=== PATIENT | male | born 1985 | race Caucasian/White ===

== ENCOUNTER 2022-02-07 23:42 | Emergency (ER) | payer BC, SELFPAY ==
[2022-02-07 23:43] VITALS: BP 162/75; PULSE 96; RESP 18; TEMP 36.3; O2SAT 98; BMI 36.1
--- NOTE | 2022-02-08 00:16 | EX.ED.DYSGE1 ---
HPI History of Present Illness Chief Complaint: General Illness Informant: patient Narrative Narrative: Patient would like another COVID test. He started with nasal congestion he is also getting nasal drainage. This is causing cough. He is not wheezing. He is not really short of breath. He is a bit tired. His energy level is down. No nausea vomiting diarrhea symptoms. No headache. Only slight muscle aches. He has had subjective fevers but none measured. This all really started over the past day or so. He had a home COVID test that was positive today. His concern is that he has family members who have had false positives with the same test so he would like an official test. Nothing is really making his symptoms better or worse but nothing is yet been tried. Patient has no chronic medical conditions and takes no medications. He did have [employer] vaccine back in May. He also had COVID just about a week after he got the vaccine. [facility] Home Medications NK 02/07/22 [History Last Taken Unknown] Allergy/AdvReac Type Severity Reaction Status Date / Time No Known Allergies Allergy Verified 02/07/22 23:50 Social History Smoking Status: Never smoker ROS ROS ED Constitutional Constitutional ED: Reports subjective Eyes Eyes: Denies blurry vision ENT ENT ED: Reports rhinorrhea; Denies ear pain or sore throat Cardiovascular Cardiovascular: Denies chest pain or palpitations Respiratory/Chest Respiratory/Chest: Reports cough; Denies dyspnea or sputum Gastrointestinal Gastrointestinal: Denies abdominal pain, diarrhea, nausea or vomiting Genitourinary Genitourinary ED: Denies dysuria Musculoskeletal Musculoskeletal: Reports myalgias Integumentary Denies rash Neurologic Neurologic: Denies headache(s) Hematologic/Lymphatic Hematologic/Lymphatic: Denies anemia Allergic/Immunologic Allergic/Immunologic ED: Denies urticaria EXAM Physical Exam Const Vital Signs: 02/07/22 23:43 02/07/22 23:49 02/08/22 00:32 Temperature 97.4 F L Temperature Source Temporal Pulse Rate 96 87 Respiratory Rate 18 18 Respiratory Effort Normal Non-Labored Respiratory Pattern Normal Blood Pressure 162/75 H 162/87 H Blood Pressure Mean 104 Pulse Ox 98 96 Oxygen Delivery Method Room Air Positive well nourished and well developed General Appearance ED: well developed and NAD; Negative for cyanotic, diaphoretic or pallor HEENT HEENT Narrative: No facial rash or tenderness. Eyes EOMs intact bilaterally Neck no lymphadenopathy and no JVD Chest Wall inspection of chest normal Resp normal respiratory effort Resp Narrative: Patient is lying in the bed. Breathing is easy and unlabored. I hear no wheezes rales or rhonchi. No pain with a deep breath. Cardio regular rate and regular rhythm Rate: Negative for tachycardic GI normal to inspection, nondistended, normoactive bowel sounds and non-tender Back/Spine no CVA tenderness Extremity normal to inspection Neuro Sensorium / Orientation: alert Psych mental status grossly normal Skin no rashes or lesions noted General Skin Exam: Negative for jaundice or pallor MDM MDM MDM Narrative Medical decision making narrative: Patient has symptoms of COVID. He has a positive test. I explained that this means he likely does have COVID. His pretest probability for second test is extremely high. For this reason there is not an indication to do a rapid test again. A negative test would likely be a false negative. Therefore, I told the patient we can send a PCR test although I will get that back tonight. We talked about Paxil bid but the patient really has no high risk features that would require this. PERC rule is negative. He has no hemoptysis or pleuritic pain. I do not think he needs to be worked up for pulmonary embolus at this time. We discussed the duration of illness, quarantining at home until asymptomatic and reasons to follow-up Discharge Plan Triage Chief Complaint: General Illness ED Provider: Vincent Pozo Dx/Rx/DC Orders Clinical Impression: COVID Instructions: Coronavirus Disease 2019 (COVID-19): Caring for Yourself or Others Prescriptions: No Action NK Primary Care Provider: Care Physician,No Primary Referrals: Alida Choi MD [Med Staff - Director Of Academic Support] - 1 Week if not improving Disposition Disposition: Home, Self Care Discharge Date/Time: 02/08/22 00:32
[2022-02-08 00:32] VITALS: BP 162/87; PULSE 87; RESP 18; O2SAT 96
== END 2022-02-08 00:32 | disposition home or self-care (01) ==
LOC: ED 02-08 00:23
PROVIDERS: Emergency Provider Emergency Medicine; Visit Provider Emergency Medicine
DX: U07.1 COVID-19 (principal)
CPT/HCPCS: 87635; 99283; U0003; U0005

== ENCOUNTER 2023-11-26 15:24 | Inpatient (IN) | payer BC, SELFPAY ==
[2023-11-26] VITALS (7 sets, daily range): BP systolic 119–156; BP diastolic 67–87; PULSE 72–89; RESP 16–18; TEMP 36.3–37.1; O2SAT 97–100; BMI 35.9; BMI 36.1
--- NOTE | 2023-11-26 15:40 | EKG12_ITS ---
Test Reason : Blood Pressure : / mmHG Vent. Rate : 073 BPM Atrial Rate : 073 BPM P-R Int : 162 ms QRS Dur : 098 ms QT Int : 386 ms P-R-T Axes : 047 049 021 degrees QTc Int : 425 ms Normal sinus rhythm Normal ECG Confirmed by Yordy Saldivar ([id number]), school photograph editor TERELL BALLESTEROS ([id number]) on 11/27/2023 9:24:58 AM Referred By: Confirmed By:Yordy Saldivar
--- NOTE | 2023-11-26 15:43 | EDS_ITS ---
<Statement entered by Madiha Mustafa MD - 11/26/23 20:08> I have personally performed a face to face assessment of the patient and have reviewed the EDGAR Note. Patient presents secondary to right leg infection. Patient suffered a wound to the right lower leg on November 20 at work. He dropped a part caused a skin abrasion. He was seen at an outside urgent care 2 days later and started on Keflex. He does admit that his skin was irritated from the bandages that he had been using. However, the patient now notes large increasing area of redness with red streak up his thigh. He has not noted a fever but does report chills. Patient sitting upright in bed no acute distress. Nontoxic-appearing. Head and neck examination unremarkable. Heart is regular rate and rhythm. Lung sounds are clear. Abdomen is soft and nontender. Right lower extremity examination reveals erythema with skin thickening over the medial anterior lower portion of the lower leg. He does have a slight lymphangitic streak up the medial thigh. Good range of motion at the joints. CBC and chemistry studies are unremarkable. Lactic acid is normal. Patient started on Unasyn and vancomycin for failed outpatient treatment of cellulitis. Patient discussed with hospitalist for admission. HPI History of Present Illness Chief Complaint: Cellulitis Narrative Narrative: Patient is a 38-year-old male with no significant ankle history presents to the emergency department for ongoing concern for infection of the right lower extremity. Patient states greater than 2 weeks ago, he cut himself from a piece of metal at work. Patient was seen at the urgent care on and was place d on Keflex 4 times a day for 10 days. Patient states that the redness continued, it is now seeping, his leg is more swollen, there is more streaking going up his leg and he is here for evaluation. He did go to urgent care again for reevaluation however they referred him here for outpatient failure and for possible admission to the hospital. Patient is complaining of fever and chills as well as intermittent headaches. Patient also states he has some hives to his arms, he is concerned might be from the Keflex. However he has never had any history of allergies PFSH PFSH Home Medications ?Medication ?Instructions ?Recorded ?Last Taken ?Type NK 02/07/22 Unknown History Allergy/AdvReac Type Severity Reaction Status Date / Time cephalexin (From Keflex) Allergy Mild Rash Verified 11/26/23 15:27 Social History (System 02/10/22 @ 06:19 by Kate Powers) Smoking Status: Never smoker ROS ROS ED ROS Narrative Constitutional: Negative for fever, chills, weight loss, weakness Eyes: Negative for vision loss, vision change, double vision ENT: Negative for any sore throat, ear pain, congestion Cardiovascular: Negative for any chest pain, tightness, palpitations Respiratory: Negative for any cough, sputum production, hemoptysis, dyspnea, dyspnea on exertion, orthopnea Gastrointestinal: Negative for any abdominal pain, nausea, vomiting, diarrhea, constipation, blood in stool, blood in vomit : Negative for any urinary frequency, dysuria, retention, blood in urine Muscle skeletal: Negative for any neck pain, back pain. Patient has pain to the right lower extremity Neurological: Negative for any headache, syncope, dizziness Skin: Negative for any rashes, itching, abrasions, lacerations. Patient has cellulitis with drainage to the right lower extremity. Psychiatric: Negative for any depression, anxiety, stress, suicidal ideation, homicidal ideation Hematologic: Negative for any excessive bruising, easy bleeding EXAM Physical Exam Narrative Exam Narrative: Vital signs reviewed. HEET: Head normocephalic atraumatic, TMs clear bilaterally. Posterior pharynx is clear, moist mucous membranes. Nares clear bilaterally. Neck: Supple with no lymphadenopathy or tenderness. No signs of meningismus. Cardiac: Regular rate and rhythm no murmurs gallops or rubs, equal peripheral pulses bilaterally. Respiratory: Lungs clear to auscultation bilaterally. No chest tenderness. Abdomen: Soft, nontender, nondistended. No abdominal bruit or pulsatile masses. No hepatosplenomegaly Extremities: No peripheral edema, no signs of gross trauma or deformity. Active full range of motion of all extremities. Patient's right lower extremity from the ankle to the mid tibia. There is significant erythema, there is a streak to the medial aspect of the leg that goes past the knee into the mid thigh. There is serosanguineous drainage from the wound. This does show some significant increase in cellulitis. Neuro: Cranial nerves II through XII intact, no focal neurological deficits. Skin: Clean dry and intact with no rash, purpura, petechiae, vesicles or pustules. Backs/flank: No CVA tenderness, no midline spinal tenderness, no deformity. Psych: Normal mood and affect. No SI, HI or acute psychosis. Const Vital Signs: 11/26/23 15:24 11/26/23 15:26 11/26/23 16:26 Temperature 97.4 F L 97.4 F L 97.6 F L Temperature Source Temporal Temporal Temporal Pulse Rate 74 74 76 Respiratory Rate 16 16 18 Blood Pressure 156/87 H 156/87 H 119/82 H Blood Pressure Mean 110 110 94 Pulse Ox 100 100 99 Oxygen Delivery Method Room Air Room Air Room Air [facility] Lab Data Labs: Laboratory Results - last 24 hr 11/26/23 15:56 WBC 10.6 RBC 5.18 Hgb 14.7 Hct 44.1 MCV 85.1 MCH 28.4 MCHC 33.3 RDW Std Deviation 37.8 RDW Coeff of Nessa 12.2 Plt Count 303 MPV 10.1 Immature Gran % (Auto) 0.400 Neut % (Auto) 70.3 H Lymph % (Auto) 18.4 L [place] % (Auto) 7.8 Eos % (Auto) 2.9 Baso % (Auto) 0.2 Absolute Neuts (auto) 7.5 Absolute Lymphs (auto) 1.96 Nucleated RBC % 0 Sodium 138 Potassium 3.9 Chloride 104 Carbon Dioxide 27.0 Anion Gap 7 BUN 18 Creatinine 1.15 Estim Creat Clear Calc 100.22 Est GFR (MDRD) Af Amer 91 Est GFR (MDRD) Non-Af 75 BUN/Creatinine Ratio 15.7 Glucose 121 H Lactic Acid 1.1 Calcium 8.7 Total Bilirubin 0.50 AST 57 H ALT 32 Alkaline Phosphatase 24 L Total Protein 7.2 Albumin 3.4 Globulin 3.8 Albumin/Globulin Ratio 0.9 Treatment and Re-Evaluation :: Differential diagnosis includes however is not limited to: DVT, abscess formation, right lower leg cellulitis, failed outpatient therapy, Patient appears to be in no obvious respiratory distress, patient look slightly uncomfortable secondary to the redness of the right lower extremity. The patient was seen at urgent care 4 days ago, placed on Keflex. I spoke with the nurse practitioner from well now, according to the notes, this cellulitis has increased greatly the last 48 hours. The patient will need to be admitted to the hospital. The patient received a septic workup including 2 sets of blood cultures, lactic acid, CBC CMP. Patient will receive IV fluids, Unasyn, vancomycin. Patient be given oral Tylenol. Patient's laboratory values showed a normal CBC, patient's chemistries were unremarkable, glucose 121, AST slightly elevated 57, this is nonspecific. Patient at this time will be admitted to the hospital. Patient started on IV antibiotics. I will reach out to the hospitalist, all questions answered, patient stable for discharge. Discharge Plan Dx/Rx/DC Orders Clinical Impression: Cellulitis of leg, Fever Disposition Disposition: Acute Care Hospital [facility]
[2023-11-26] MEDS: Acetaminophen 500 MG Tablet 1000 MG PO (15:46)
[2023-11-26] MEDS: 0.9% Normal Saline (1000mL) 1,000 ML 999 ML IV (15:46)
[2023-11-26] MEDS: Ampicillin/Sulbactam 3 GM in 0.9% Normal Saline (100mL MB+) 100 ML IV (16:08)
[2023-11-26 16:09] LABS: Absolute Lymphocyte Count 1.96 X10^3/uL (0.83-4.51); Absolute Neutrophil Count 7.5 X10^3/uL (2.0-7.7); Basophil# 0.02 X10^3/uL; Basophil% 0.2 % (0-1); Eosinophil# 0.31 X10^3/uL; Eosinophils% 2.9 % (0-5); Hematocrit 44.1 % (40-54); Hemoglobin 14.7 g/dL (13.0-16.5); Lymphocyte # 1.96 X10^3/ul (0.83-4.51); Lymphocyte % 18.4 % (19-41); Mean Corp Hgb Conc 33.3 g/dL (32-36); Mean Corpuscular Hgb 28.4 pg (27.0-32.0); Mean Corpuscular Volume 85.1 fL (80-94); Mean Platelet Vol. 10.1 fl (6.2-12.0); Monocyte# 0.83 X10^3/uL; Monocyte% 7.8 % (0-10); NRBC Flagged by Analyzer 0 % (0-5); Neutrophil # 7.48 X10^3/uL (2.7-7.7); Neutrophil % 70.3 % (47-70); Platelet Count 303 K/mm3 (150-450); RBC Distribution Width CV 12.2 % (11.6-14.6); RBC Distribution Width SD 37.8 fl (35.1-43.9); Red Blood Count 5.18 M/mm3 (4.6-6.2); White Blood Count 10.6 K/mm3 (4.4-11.0)
[2023-11-26 16:27] LABS: ALB/GLOB Ratio 0.9 RATIO (0.9-2.4); AST(SGOT) 57 U/L (15-37); Alanine Aminotransfer ALT/SGPT 32 U/L (16-61); Albumin, Serum 3.4 g/dL (3.2-5.0); Alkaline Phosphatase 24 U/L (45-117); Anion Gap 7 (5-15); BUN 18 mg/dL (7-18); BUN/Creat Ratio 15.7 RATIO (10-20); Calcium,Total 8.7 mg/dL (8.5-10.1); Chloride 104 mmol/L (98-107); Creatinine, Serum 1.15 mg/dL (0.70-1.30); EST Glomerular Filtration Rate 75 mL/min (>60); Est Glom Filt Rate - Afr Amer 91 mL/min (>60); Estimated Creatinine Clearance 100.22 ml/min; Globulin 3.8 g/dL (2.2-4.2); Glucose 121 mg/dL (74-106); Potassium 3.9 mmol/L (3.5-5.1); Protein, Total 7.2 g/dL (6.4-8.2); Sodium Level 138 mmol/L (136-145)
[2023-11-26 16:35] LABS: Lactic Acid 1.1 mmol/L (0.4-1.9)
--- NOTE | 2023-11-26 16:46 | PCM.HP.STD ---
HPI - General General Date of Admission: 11/26/23 Date of Service: 11/26/23 Chief Complaint: Cellulitis HPI Narrative DEANGELO VELOZ, is a 38 M who presents to the ED with concerns regarding pain swelling and redness over his right leg. He was previously seen at an urgent care center when he comes to himself with a piece of metal at work, and was started on Keflex 4 times a day for 10 days. Despite the antibiotic therapy his symptoms have worsened and there is now new onset oozing from the infection site and swelling. For these concerns he presented to the ED. He has not had any fever at home. No prior past medical history, denies any IV drug use, smoking or marijuana use. Evaluation in the ED showed blood pressure of 119/82, pulse 76, temperature 97.6 WBC 10.6, hemoglobin 14.7, platelet count 303, sodium 138, creatinine 1.1 glucose 121, AST 57 alk phos 24 albumin 3.4. Blood cultures were sent started on ampicillin Bactrim, vancomycin and 1 g of IV Tylenol was given. [facility] Home Medications ?Medication ?Instructions ?Recorded ?Last Taken ?Type NK 02/07/22 Unknown History Allergy/AdvReac Type Severity Reaction Status Date / Time cephalexin (From Keflex) Allergy Mild Rash Verified 11/26/23 15:27 Social History (System 02/10/22 @ 06:19 by Kate Powers) Smoking Status: Never smoker ROS Review of Systems ROS Unobtainable: Denies due to encephalopathy, due to endotracheal tube, due to mental condition, due to mental status or other Constitutional Constitutional: Reports fatigue; Denies anorexia, change in weight, chills, fever(s), malaise, night sweats, weakness or other Eyes Eyes: Denies blurry vision, change in eye color, change in vision, discharge from eye(s), double vision, erythema, eye pain, loss of vision or other ENT HEENT: Denies abnormal hearing, dysphagia, ear pain, epistaxis, headache(s), hearing loss, nasal congestion, nasal discharge, post nasal drip, sinus pressure, sore throat or other Cardiovascular Cardiovascular: Denies chest pain, claudication, dyspnea on exertion, edema, lightheadedness, orthopnea, palpitations, paroxysmal nocturnal dyspnea, rapid heart rate, syncope or other Respiratory/Chest Respiratory/Chest: Denies cough, dyspnea, excessive phlegm production, hemoptysis, productive cough, shortness of breath at rest, shortness of breath with exertion, wheezing or other Gastrointestinal Gastrointestinal: Denies abdominal pain, coffee ground emesis, constipation, diarrhea, dyspepsia, hematemesis, hematochezia, loose stools, melena, nausea, vomiting or other Genitourinary Genitourinary: Denies burning urination, difficulty urinating, dysuria, hematuria, nocturia, urinary frequency, urinary hesitancy, urinary incontinence, urinary urgency or other Musculoskeletal Musculoskeletal: Denies arthralgias, back pain, joint pain, joint stiffness, joint swelling, myalgias, neck pain or other Neurologic Neurologic: Denies abnormal gait, abnormal speech, confusion, disequilibrium, dizziness, focal weakness, headache(s), numbness, paresthesias, seizure-like activity, seizures, syncope, tingling, tremor(s) or other Psychiatric Psychiatric: Denies anxiety, depression, homicidal ideation, suicidal ideation or other Endocrine Endocrinology: Denies change in body appearance, cold intolerance, excessive sweating, heat intolerance, polydipsia, polyuria or other Hematologic/Lymphatic Hematologic/Lymphatic: Denies anemia, easy bleeding, easy bruising, lymphadenopathy or other Allergic/Immunologic Allergic/Immunologic: Denies rhinitis, hives, eczemia, asthma or other Vital Signs Vital Signs Vital Signs: 11/26/23 15:24 11/26/23 15:26 11/26/23 16:26 Temperature 97.4 F L 97.4 F L 97.6 F L Temperature Source Temporal Temporal Temporal Pulse Rate 74 74 76 Respiratory Rate 16 16 18 Blood Pressure 156/87 H 156/87 H 119/82 H Blood Pressure Mean 110 110 94 Pulse Ox 100 100 99 Oxygen Delivery Method Room Air Room Air Room Air Weight Weight: 229 lb 12.8 oz Body Mass Index (BMI) 35.9 Physical Exam Const alert, oriented x3 and no apparent distress HEENT normocephalic and head/scalp atraumatic Eyes PERRL and EOMs intact bilaterally Neck no lymphadenopathy Resp normal respiratory effort and no retractions Cardio regular rate and regular rhythm GI normal to inspection, nondistended, normoactive bowel sounds Extremity Extremity Narrative: Swelling erythema and tenderness over right [place] with associated purulent discharge but no fluctuation. Neuro oriented x3 and CN's II-XII intact bilaterally Psych affect normal Results Medical Records Data Attestation: I reviewed the patient's medical records Lab / Micro Data Attestation: I reviewed the patient's lab results. 11/26/23 15:56 11/26/23 15:56 Labs: Laboratory Results - last 24 hr 11/26/23 15:56: WBC 10.6, RBC 5.18, Hgb 14.7, Hct 44.1, MCV 85.1, MCH 28.4, MCHC 33.3, RDW Std Deviation 37.8, RDW Coeff of Nessa 12.2, Plt Count 303, MPV 10.1, Immature Gran % (Auto) 0.400, Neut % (Auto) 70.3 H, Lymph % (Auto) 18.4 L, [place] % (Auto) 7.8, Eos % (Auto) 2.9, Baso % (Auto) 0.2, Absolute Neuts (auto) 7.5, Absolute Lymphs (auto) 1.96, Nucleated RBC % 0, Sodium 138, Potassium 3.9, Chloride 104, Carbon Dioxide 27.0, Anion Gap 7, BUN 18, Creatinine 1.15, Estim Creat Clear Calc 100.22, Est GFR (MDRD) Af Amer 91, Est GFR (MDRD) Non-Af 75, BUN/Creatinine Ratio 15.7, Glucose 121 H, Lactic Acid 1.1, Calcium 8.7, Total Bilirubin 0.50, AST 57 H, ALT 32, Alkaline Phosphatase 24 L, Total Protein 7.2, Albumin 3.4, Globulin 3.8, Albumin/Globulin Ratio 0.9 Assessment & Plan Assessment/Plan (1) Cellulitis of leg: PLAN: Plan 30-year-old male without any past medical history presents to the ED with concerns regarding right lower leg cellulitis that has not responded to outpatient Keflex therapy. #Cellulitis: -Following injury at work -Started on IV Unasyn -Received Unasyn and vancomycin in the ED -MRSA nasal swab -Follow-up on blood cultures -Limb elevation -Dry wound dressing and proper hygiene -Admit to [facility] for IV antibiotics and monitoring #DVT prophylaxis: Low to moderate risk -Enoxaparin 40 mg once daily #Obesity: Follow-up as an outpatient for further management no comorbidities at this time Charges/Coding Visit Charges Inpatient E&M: 43194 Init Hosp L1
[2023-11-26] MEDS: Vancomycin HCl 2,000 MG in 0.9% Normal Saline (500mL Bag) 500 ML 250 MG IV (17:02)
[2023-11-27] MEDS: Ampicillin/Sulbactam 3 GM in 0.9% Normal Saline (100mL MB+) 100 ML IV ×5 (00:38→23:24)
[2023-11-27 00:47] VITALS: BP 129/66; PULSE 78; RESP 16; TEMP 36.4; O2SAT 98
[2023-11-27 05:59] VITALS: BP 128/67; PULSE 77; RESP 16; TEMP 36.6; O2SAT 98
[2023-11-27 06:53] LABS: ALB/GLOB Ratio 0.8 RATIO (0.9-2.4); AST(SGOT) 47 U/L (15-37); Alanine Aminotransfer ALT/SGPT 27 U/L (16-61); Albumin, Serum 2.8 g/dL (3.2-5.0); Alkaline Phosphatase 13 U/L (45-117); Anion Gap 8 (5-15); BUN 14 mg/dL (7-18); BUN/Creat Ratio 16.4 RATIO (10-20); Bilirubin, Direct 0.13 mg/dL (0.00-0.30); Calcium,Total 8.5 mg/dL (8.5-10.1); Chloride 110 mmol/L (98-107); Creatinine, Serum 0.85 mg/dL (0.70-1.30); EST Glomerular Filtration Rate 107 mL/min (>60); Est Glom Filt Rate - Afr Amer 129 mL/min (>60); Estimated Creatinine Clearance 133.33 ml/min; Globulin 3.7 g/dL (2.2-4.2); Glucose 100 mg/dL (74-106); Magnesium 1.9 mg/dL (1.6-2.6); Phosphorus 4.3 mg/dL (2.5-4.9); Potassium 4.2 mmol/L (3.5-5.1); Protein, Total 6.5 g/dL (6.4-8.2); Sodium Level 139 mmol/L (136-145); Thyroid Stim Hormone (TSH) 6.22 uIU/mL (0.358-3.74)
[2023-11-27 07:11] LABS: Absolute Lymphocyte Count 1.52 X10^3/uL (0.83-4.51); Absolute Neutrophil Count 5.5 X10^3/uL (2.0-7.7); Basophil# 0.02 X10^3/uL; Basophil% 0.2 % (0-1); Eosinophil# 0.36 X10^3/uL; Eosinophils% 4.5 % (0-5); Hematocrit 40.2 % (40-54); Hemoglobin 13.2 g/dL (13.0-16.5); Lymphocyte # 1.52 X10^3/ul (0.83-4.51); Lymphocyte % 18.9 % (19-41); Mean Corp Hgb Conc 32.8 g/dL (32-36); Mean Corpuscular Hgb 28.1 pg (27.0-32.0); Mean Corpuscular Volume 85.5 fL (80-94); Mean Platelet Vol. 9.7 fl (6.2-12.0); Monocyte# 0.61 X10^3/uL; Monocyte% 7.6 % (0-10); NRBC Flagged by Analyzer 0 % (0-5); Neutrophil # 5.52 X10^3/uL (2.7-7.7); Neutrophil % 68.4 % (47-70); Platelet Count 252 K/mm3 (150-450); RBC Distribution Width CV 12.1 % (11.6-14.6); RBC Distribution Width SD 37.6 fl (35.1-43.9); White Blood Count 8.1 K/mm3 (4.4-11.0)
--- NOTE | 2023-11-27 07:23 | PN.HOSP_ITS ---
Reason for Visit Reason for Visit: Diagnoses Cellulitis of unspecified part of limb (11/26/23) Subjective Subjective Right leg feeling better. Objective Data Objective Data Vital Signs: Vital Signs Temp Pulse Resp BP Pulse Ox O2 Del Method 36.6 C 77 16 128/67 H 98 Room Air 11/27/23 05:59 11/27/23 05:59 11/27/23 05:59 11/27/23 05:59 11/27/23 05:59 11/27/23 05:59 Oxygen Delivery Method Room Air Weight: 104.3 kg Body Mass Index (BMI) 36.1 Intake & Output: Intake and Output for Last 24 Hours 11/25/23 11/26/23 11/27/23 23:59 23:59 23:59 Intake Total 1652 / 1652 1124 / 1124 Balance 1652 / 1652 1124 / 1124 Lab / Micro Data 11/27/23 06:55 11/27/23 05:41 Labs: Laboratory Results - last 24 hr 11/26/23 15:56: WBC 10.6, RBC 5.18, Hgb 14.7, Hct 44.1, MCV 85.1, MCH 28.4, MCHC 33.3, RDW Std Deviation 37.8, RDW Coeff of Nessa 12.2, Plt Count 303, MPV 10.1, Immature Gran % (Auto) 0.400, Neut % (Auto) 70.3 H, Lymph % (Auto) 18.4 L, [place] % (Auto) 7.8, Eos % (Auto) 2.9, Baso % (Auto) 0.2, Absolute Neuts (auto) 7.5, Absolute Lymphs (auto) 1.96, Nucleated RBC % 0, Sodium 138, Potassium 3.9, Chloride 104, Carbon Dioxide 27.0, Anion Gap 7, BUN 18, Creatinine 1.15, Estim Creat Clear Calc 100.22, Est GFR (MDRD) Af Amer 91, Est GFR (MDRD) Non-Af 75, BUN/Creatinine Ratio 15.7, Glucose 121 H, Lactic Acid 1.1, Calcium 8.7, Total Bilirubin 0.50, AST 57 H, ALT 32, Alkaline Phosphatase 24 L, Total Protein 7.2, Albumin 3.4, Globulin 3.8, Albumin/Globulin Ratio 0.9 11/27/23 05:41: WBC Cancelled, Corrected WBC Cancelled, RBC Cancelled, Hgb Cancelled, Hct Cancelled, MCV Cancelled, MCH Cancelled, MCHC Cancelled, RDW Std Deviation Cancelled, RDW Coeff of Nessa Cancelled, Plt Count Cancelled, MPV Cancelled, Immature Gran % (Auto) Cancelled, Neut % (Auto) Cancelled, Lymph % (Auto) Cancelled, [place] % (Auto) Cancelled, Eos % (Auto) Cancelled, Baso % (Auto) Cancelled, Absolute Neuts (auto) Cancelled, Absolute Lymphs (auto) Cancelled, Total Counted Cancelled, Neutrophils % (Manual) Cancelled, Band Neutrophils % Cancelled, Lymphocytes % (Manual) Cancelled, Monocytes % (Manual) Cancelled, Eosinophils % (Manual) Cancelled, Basophils % (Manual) Cancelled, Metamyelocytes % Cancelled, Myelocytes % Cancelled, Promyelocytes % Cancelled, Blast Cells % Cancelled, Plasma Cell % (Manual) Cancelled, Other Cells % Cancelled, Nucleated RBC % Cancelled, Nucleated RBCs/100 WBC Cancelled, Differential Comment Cancelled, Diff Path Review Cancelled, Hypersegmented Neuts Cancelled, Atypical Lymphocytes Cancelled, Reactive Lymphocytes Cancelled, Smudge Cells Cancelled, Toxic Granulation Cancelled, Toxic Vacuolation Cancelled, Dohle Bodies Cancelled, Geri Rods Cancelled, Platelet Estimate Cancelled, Plt Morphology Comment Cancelled, RBC Morphology Cancelled 11/27/23 05:41: RBC Morphology Cancelled, Polychromasia Cancelled, Hypochromasia Cancelled, Basophilic Stippling Cancelled, Anisocytosis Cancelled, Microcytosis Cancelled, Macrocytosis Cancelled, Spherocytes Cancelled, Sickle Cells Cancelled, Target Cells Cancelled, Tear Drop Cells Cancelled, Ovalocytes Cancelled, Stomatocytes Cancelled, [place] Bodies Cancelled, Joann Cells Cancelled, Bite Cells Cancelled, Crenated Cell Cancelled, Acanthocytes (Spur) Cancelled, Rouleaux Cancelled, Schistocytes Cancelled, PT 13.0, INR 1.0, Sodium 139, Potassium 4.2, Chloride 110 H, Carbon Dioxide 21.0, Anion Gap 8, BUN 14, Creatinine 0.85, Estim Creat Clear Calc 133.33, Est GFR (MDRD) Af Amer 129, Est GFR (MDRD) Non-Af 107, BUN/Creatinine Ratio 16.4, Glucose 100, Calcium 8.5, Phosphorus 4.3, Magnesium 1.9, Total Bilirubin 0.40, Direct Bilirubin 0.13, AST 47 H, ALT 27, Alkaline Phosphatase 13 L, Total Protein 6.5, Albumin 2.8 L, Globulin 3.7, Albumin/Globulin Ratio 0.8 L, TSH 6.22 H 11/27/23 06:55: WBC 8.1, RBC 4.70, Hgb 13.2, Hct 40.2, MCV 85.5, MCH 28.1, MCHC 32.8, RDW Std Deviation 37.6, RDW Coeff of Nessa 12.1, Plt Count 252, MPV 9.7, Immature Gran % (Auto) 0.400, Neut % (Auto) 68.4, Lymph % (Auto) 18.9 L, [place] % (Auto) 7.6, Eos % (Auto) 4.5, Baso % (Auto) 0.2, Absolute Neuts (auto) 5.5, Absolute Lymphs (auto) 1.52, Nucleated RBC % 0 Micro: Microbiology 11/26/23 18:50 Wound - Leg, Right Skin and Soft Tissue MRSA/MSSA (PCR - Final Physical Exam Const alert and no apparent distress HEENT head/scalp atraumatic and moist oral mucous membranes Eyes Eyes Narrative: No icterus. Glasses. Resp normal respiratory effort and no retractions Cardio regular rate and regular rhythm Extremity Extremity Narrative: Right leg wrapped, did not remove. Skin Skin Narrative: Reviewed images that were taken by the wound care nurse. Patient had erythema primarily on the medial calf extending anteriorly. Assessment & Plan Assessment/Plan (1) Cellulitis of leg: PLAN: Plan RLE cellulitis * Likely secondary to an object falling on his leg on the . Failed outpt abx with cephalexin which she took from the through the second, but got worse. * on amp/SB add vancomycin * Patient did develop diffuse urticaria that may have been related with the cephalexin. Cephalexin has been added to his allergy list DVT prophylaxis: Low to moderate risk-Enoxaparin 40 mg once daily Disposition: To be determined. Will be swatch overnight if patient does well, would likely discharge on the fourth. Charges/Coding Visit Charges Inpatient E&M: 41619 Subs Hosp L2
--- NOTE | 2023-11-27 08:19 | WOUNDNOTE ---
wound photo: right lower leg
--- NOTE | 2023-11-27 08:19 | WOUNDNOTE ---
wound photo: right lower leg
--- NOTE | 2023-11-27 08:20 | WOUNDNOTE ---
wound photo: right lower leg
[2023-11-27 09:40] VITALS: BP 125/71; PULSE 78; RESP 18; TEMP 36.4; O2SAT 98
[2023-11-27] MEDS: Enoxaparin 40 MG/0.4 ML Syringe SC (09:46)
--- NOTE | 2023-11-27 10:30 | CASEMGMT ---
RN CM Face to Face with patient for initial transition planning/care coordination assessment. RN CM introduced self and role at [facility]. Patient lying in bed, alert and oriented. Patient willing to participate in assessment and is able to answer all questions appropriately. Care providers, pharmacy, and demographics verified. PCP:none, PCP list and [facility] information provided to patient Specialists: none Preferred Pharmacy: [facility] Insurance: [place] Prescription Benefit: yes Living Will/HPOA: none LNOK: mother, anita Living Arrangements: Patient lives with anita in a 2 story home. Patient states he is independent and able to ambulate stairs. Transportation: self, fiance DME/HHC: Patient denies DME. No previous HHC or SNF Patient wishes to discharge home, denies need for home health at this time. Patient states he has no further needs or concerns at this time. CM to follow for discharge planning needs that may arise. Disposition Plan: Patient to discharge home with family support and follow-up plans in place. Ivania FISHER, RN, CM
[2023-11-27 13:47] VITALS: BP 120/78; PULSE 83; RESP 18; TEMP 36.1; O2SAT 100
[2023-11-27] MEDS: Vancomycin HCl 1,250 MG in 0.9% Normal Saline (250mL Bag) 250 ML 167 MG IV ×2 (15:09→21:32)
[2023-11-27 15:51] VITALS: BP 125/70; PULSE 78; RESP 18; TEMP 36.8; O2SAT 99
[2023-11-27 20:00] VITALS: BP 140/73; PULSE 82; RESP 16; TEMP 37.3; O2SAT 97
[2023-11-27] MEDS: Acetaminophen 325 MG Tablet 650 MG PO (23:23)
[2023-11-28 02:05] VITALS: BP 124/68; PULSE 67; RESP 16; TEMP 36.6; O2SAT 97
[2023-11-28] MEDS: Ampicillin/Sulbactam 3 GM in 0.9% Normal Saline (100mL MB+) 100 ML IV ×2 (05:05→11:43)
[2023-11-28] MEDS: Vancomycin HCl 1,250 MG in 0.9% Normal Saline (250mL Bag) 250 ML 167 MG IV (06:13)
--- NOTE | 2023-11-28 06:52 | PCM.PN.HOSP ---
Reason for Visit Reason for Visit: Diagnoses Cellulitis of unspecified part of limb (11/26/23) Subjective Subjective Leg feeling better. Objective Data Objective Data Vital Signs: Vital Signs Temp Pulse Resp BP Pulse Ox O2 Del Method 36.6 C 67 16 124/68 H 97 Room Air 11/28/23 02:05 11/28/23 02:05 11/28/23 02:05 11/28/23 02:05 11/28/23 02:05 11/28/23 02:05 Oxygen Delivery Method Room Air Weight: 104.3 kg Body Mass Index (BMI) 36.1 Intake & Output: Intake and Output for Last 24 Hours 11/26/23 11/27/23 11/28/23 23:59 23:59 23:59 Intake Total 1652 / 1652 2348 / 2348 224 / 224 Balance 1652 / 1652 2348 / 2348 224 / 224 Lab / Micro Data 11/27/23 06:55 11/27/23 05:41 Labs: Laboratory Results - last 24 hr 11/27/23 05:41: Sodium 139, Potassium 4.2, Chloride 110 H, Carbon Dioxide 21.0, Anion Gap 8, BUN 14, Creatinine 0.85, Estim Creat Clear Calc 133.33, Est GFR (MDRD) Af Amer 129, Est GFR (MDRD) Non-Af 107, BUN/Creatinine Ratio 16.4, Glucose 100, Calcium 8.5, Phosphorus 4.3, Magnesium 1.9, Total Bilirubin 0.40, Direct Bilirubin 0.13, AST 47 H, ALT 27, Alkaline Phosphatase 13 L, Total Protein 6.5, Albumin 2.8 L, Globulin 3.7, Albumin/Globulin Ratio 0.8 L, TSH 6.22 H 11/27/23 06:55: WBC 8.1, RBC 4.70, Hgb 13.2, Hct 40.2, MCV 85.5, MCH 28.1, MCHC 32.8, RDW Std Deviation 37.6, RDW Coeff of Nessa 12.1, Plt Count 252, MPV 9.7, Immature Gran % (Auto) 0.400, Neut % (Auto) 68.4, Lymph % (Auto) 18.9 L, [place] % (Auto) 7.6, Eos % (Auto) 4.5, Baso % (Auto) 0.2, Absolute Neuts (auto) 5.5, Absolute Lymphs (auto) 1.52, Nucleated RBC % 0 Micro: Microbiology 11/26/23 18:50 Wound - Leg, Right Skin and Soft Tissue MRSA/MSSA (PCR - Final Physical Exam Const alert and no apparent distress HEENT head/scalp atraumatic Skin Skin Narrative: erythema on medial right leg. no edema. appears overall improved. Assessment & Plan Assessment/Plan (1) Cellulitis of leg: PLAN: Plan RLE cellulitis Likely secondary to an object falling on his leg on the . Failed outpt abx with cephalexin which she took from the through the , but got worse. MRSA and S. aureus PCR negative. Patient did develop diffuse urticaria that may have been related with the cephalexin. Cephalexin has been added to his allergy list Will discharge with augmentin DVT prophylaxis: Low to moderate risk-Enoxaparin 40 mg once daily Disposition: To be determined. Will be swatch overnight if patient does well, would likely discharge on the .
[2023-11-28 09:14] VITALS: BP 139/78; PULSE 73; RESP 18; TEMP 36.9; O2SAT 95
[2023-11-28] MEDS: Enoxaparin 40 MG/0.4 ML Syringe SC (09:35)
--- NOTE | 2023-11-28 11:24 | DS.PCM_ITS ---
Providers Date of Admission: 11/26/23 Primary Care Physician: Leola Primary Care Phys Consultations 11/27/23 07:33 Consult: Onc/Wound/customer sales service manager Routine Comment: Reason for Consult:: wound care recommendations Reason For Visit: CELLULITIS Diagnosis Discharge Diagnosis (1) Cellulitis of leg: Status: Acute Code(s): L03.119 - Cellulitis of unspecified part of limb Plan RLE cellulitis * Likely secondary to an object falling on his leg on the . Failed outpt abx with cephalexin which she took from the through the , but got worse. * MRSA and S. aureus PCR negative. * Patient did develop diffuse urticaria that may have been related with the cephalexin. Cephalexin has been added to his allergy list * Will discharge with augmentin DVT prophylaxis: Low to moderate risk-Enoxaparin 40 mg once daily Disposition: To be determined. Will be swatch overnight if patient does well, would likely discharge on the . Medications at Discharge Home Medications naproxen sodium 220 mg tablet (Aleve) 440 mg PO DAILY PRN pain 11/26/23 amoxicillin 875 mg-potassium clavulanate 125 mg tablet 1 tab PO BID #10 tabs 11/28/23 Hospital Course Operations None Procedures None Summary of Care Provided Minutes Spent on Discharge: 32 Hospital Course: Patient presented with delayed onset presentation of cellulitis. Patient had been treated with cephalexin but got worse and he also developed urticaria with that. Patient was started on Unasyn and vancomycin here and he has improvement. Patient is MRSA and Staph aureus are negative so I do not feel that MRSA coverage is necessary. Being that he did improve overall with the Unasyn, patient will be discharged with Augmentin. Patient advised to keep his leg elevated and to stay off work for couple more days. Weight / BMI Weight Weight: 104.3 kg Body Mass Index (BMI) 36.1 ABG / Lab / Microbiology Data 11/27/23 06:55 11/27/23 05:41 Microbiology: Microbiology 11/26/23 20:15 Urine, Clean Catch Urine Culture - Final Culture exhibits no growth. 11/26/23 18:50 Wound - Leg, Right Skin and Soft Tissue MRSA/MSSA (PCR - Final D/C Instructions Discharge Diet: No restrictions Return to work on: 11/30/23 Weight Bearing Status: Weight bearing as tolerated Keep extremity elevated above heart level: Right Leg Call your doctor if your incision/area has: Continuous Slow Oozing, Sudden Increased Bleeding, Increased Pain/ Swelling, Increased Redness and Foul Smelling Discharge Call your doctor if you observe: Fever of 101 or Higher Meaningful Use Info Meaningful Use Meaningful Use Diagnoses (Choose all that apply): None applicable Ischemic Stroke Statin Dosing Therapy Reference: STATIN DOSE THERAPY REFERENCE: * Patients > 75 years receive moderate or high dose statin therapy. * Patients 75 years or YOUNGER should receive HIGH intensity statin dose unless contraindicated. You will be required to document reason for non-treatment if statin daily dose does not meet guidelines. HIGH DOSE STATIN THERAPY DAILY Atorvastatin > than or = to 40 mg Rosuvastatin > than or = to 20 mg Amlodipine + Atorvastatin > than or = to 2.5/40 mg Ezetimibe + Simvastatin 10/80 mg Simvastatin 80mg Discharge Plan Admission Admit Date/Time: 11/26/23 16:55 Primary Reason for Your Visit: RLE cellulitis Attending Provider: Franck Dunn Primary Care Provider: Care Physician,No Primary Consulting Providers: Cornelio Barber Instructions Additional Instructions / Restrictions: Keep your right leg elevated when you are sitting around. If you have increased swelling, redness, notify your physician or return to the emergency room immediately. Discharge Orders/Prescriptions Prescriptions: New amoxicillin-pot clavulanate 875-125 mg tablet 1 tab PO BID Qty: 10 0RF Continued naproxen sodium [Aleve] 220 mg tablet 440 mg PO DAILY PRN (Reason: pain) Discontinued cephalexin 500 mg capsule 1 PO 4X/DAY Rx Instructions: (took am dose /, concerns for hives with this med and sent to hospital for evaluation) Referrals / Follow Up: Care Physician,No Primary [Primary Care Provider] - Disposition Disposition (needs filled in before D/C Order can be placed): Home, Self Care Charges/Coding Visit Charges Inpatient E&M: 51704 Disch Hosp >30min
--- NOTE | 2023-11-28 11:55 | CASEMGMT ---
RAPHAEL GRECO NOTE: Discharge order is in. RAPHAEL GRECO to room. Pt sitting up on couch in room, family in room w/pt. Pt would like medication delivered to his room. Call placed to [facility] retail pharmacy and they were made aware. Pt denies having any further discharge needs/concerns. Alfredo MCKEONN RAPHAEL GRECO
[2023-11-28 13:44] VITALS: BP 139/87; PULSE 85; RESP 16; TEMP 36.7; O2SAT 99
[2023-11-28 14:30] LABS: Vancomycin, Trough Level 15.5 ug/mL (5.0-15.0)
--- NOTE | 2023-11-28 14:40 | PCM.RX.CS ---
Consult Antibiotic Management Pharmacy has been consulted to manage selected antibiotic: Vancomycin Type of Intervention Type of Consult: Follow-up Suspected Infection Suspected Infection: Skin/Soft tissue Labs Labs: Sodium 139 mmol/L (136-145) 11/27/23 05:41 Potassium 4.2 mmol/L (3.5-5.1) 11/27/23 05:41 Chloride 110 mmol/L (98-107) H 11/27/23 05:41 Carbon Dioxide 21.0 mmol/L (21.0-32.0) 11/27/23 05:41 Anion Gap 8 (5-15) 11/27/23 05:41 BUN 14 mg/dL (7-18) 11/27/23 05:41 Creatinine 0.85 mg/dL (0.70-1.30) 11/27/23 05:41 Est GFR (MDRD) Af Amer 129 mL/min (>60) 11/27/23 05:41 Est GFR (MDRD) Non-Af 107 mL/min (>60) 11/27/23 05:41 BUN/Creatinine Ratio 16.4 RATIO (10-20) 11/27/23 05:41 Glucose 100 mg/dL (74-106) 11/27/23 05:41 Vancomycin Trough 15.5 ug/mL (5.0-15.0) H 11/28/23 13:15 Microbiology Microbiology: Microbiology 11/26/23 20:15 Urine, Clean Catch Urine Culture - Final Culture exhibits no growth. 11/26/23 18:50 Wound - Leg, Right Skin and Soft Tissue MRSA/MSSA (PCR - Final Goal Trough Goal Trough: 15-20 mcg/mL Pharmacy Plan for Drug Dosing Pharmacy Plan for Drug Dosing: VANCOMYCIN LEVEL RECEIVED Current Vancomycin Dose: Vancomycin 1250mg Q8H Number of Doses Received: 1250mg x3, 2000mg x1 Vancomycin Level: 15.5 Hours Since Last Dose: 7 Renal Function: sCr 0.85 (11/27/23) Vancomycin Plan/Comments: Continue Vancomycin 1250mg Q8H Pending Level: Vancomycin trough @ 13:30 11/29/23 Pharmacy Service will continue to monitor and adjust dosing as required. Follow-Up Labs Follow-Up Labs: Trough: Vancomycin (13:30 11/29/23)
--- NOTE | 2023-11-28 16:46 | PHA.DC.MR.R ---
Pharmacy [place] Med Reconciliation Pharmacy Service has performed discharge medication reconciliation for this patient. Medication education papers prepared, patient discharged when counseling was attempted. Medications reviewed. The patient's discharge medication list was reviewed for discrepancies and discrepancies were resolved. Medications at Discharge Home Medications naproxen sodium 220 mg tablet (Aleve) 440 mg PO DAILY PRN pain 11/26/23 amoxicillin 875 mg-potassium clavulanate 125 mg tablet 1 tab PO BID #10 tabs 11/28/23
== END 2023-11-28 15:30 | disposition home or self-care (01) | DRG 603 ==
LOC: ED 16:46 → MS3 17:23
PROVIDERS: Nurse Practitioner; Admitting Provider Internal Medicine; Emergency Provider Emergency Medicine
DX: L03.115 Cellulitis of right lower limb (principal); E66.9 Obesity, unspecified; L50.0 Allergic urticaria; Z68.35 Body mass index [BMI] 35.0-35.9, adult
CPT/HCPCS: 36415; 80048; 80053; 80076; 80202; 83605; 83735; 84100; 84443; 85025; 85610; 87040; 87086; 87640; 93005; 97802; 99284; J7040; J7050; A4216; J0295